=== PATIENT | female | born 1965 | race American Indian/Alaskan Native ===

== ENCOUNTER 2017-03-13 01:59 | Inpatient (IN) | payer BC ==
[2017-03-13 02:29] VITALS: BMI 37.4
--- NOTE | 2017-03-13 02:48 | ED PDOC ---
Arrival/HPI - General Chief Complaint: Female Genitourinary Time Seen by Provider: 03/13/17 02:20 Historian: Patient - History of Present Illness Narrative History of Present Illness (Text): 03/13/17 02:45 Cherelle Willis is a 52 year old female, whose past medical history includes hysterectomy, who presents to the Emergency department complaining of flank pain. Patient reports she has been experiencing intermittent right flank pain radiating to her right abdomen for 1 day. Patient notes associated nausea and dark urine. Patient denies any fever, chills, chest pain, shortness of breath, vomiting, diarrhea, neck pain, headache, dizziness, or any other complaints. Symptom Onset: Gradual Symptom Course: Unchanged, Intermittent Activities at Onset: Light Context: Home Past Medical History - Provider Review Nursing Documentation Reviewed: Yes - Tetanus Immunization Tetanus Immunization: Unknown - Hematological/Oncological Hx Anemia: Yes - Musculoskeletal/Rheumatological Hx Falls: No - Genitourinary/Gynecological Other/Comment: tubal ligation-1996 - Psychiatric Hx Depression: No Hx Emotional Abuse: No Hx Physical Abuse: No Hx Substance Use: No - Surgical History Hx Hysterectomy: Yes Hx Tubal Ligation: Yes - Suicidal Assessment Feels Threatened In Home Enviroment: No Family/Social History - Physician Review Nursing Documentation Reviewed: Yes Family/Social History: Unknown Family HX Smoking Status: Never Smoked Hx Alcohol Use: No Hx Substance Use: No Hx Substance Use Treatment: No Allergies/Home Meds Allergies/Adverse Reactions: Allergies No Known Allergies Allergy (Verified 03/13/17 02:32) Review of Systems - Physician Review All systems were reviewed & negative as marked: Yes - Review of Systems Constitutional: Normal. absent: Fevers Eyes: Normal ENT: Normal Respiratory: Normal. absent: SOB, Cough Cardiovascular: Normal. absent: Chest Pain Gastrointestinal: Abdominal Pain, Nausea. absent: Diarrhea, Vomiting Genitourinary Female: Other (+dark urine). absent: Dysuria, Frequency, Urine Output Changes Musculoskeletal: Back Pain (+right flank pain). absent: Neck Pain Skin: Normal. absent: Rash Neurological: Normal. absent: Headache, Dizziness Endocrine: Normal Hemo/Lymphatic: Normal Psychiatric: Normal Physical Exam Vital Signs Reviewed: Yes Vital Signs Temp Pulse Resp BP Pulse Ox 03/13/17 05:44 98.8 F 83 18 116/70 100 03/13/17 02:29 98.9 F 99 H 20 115/79 97 Temperature: Afebrile Blood Pressure: Normal Pulse: Regular Respiratory Rate: Normal Appearance: Positive for: Well-Appearing, Non-Toxic, Comfortable Pain Distress: None Mental Status: Positive for: Alert and Oriented X 3 - Systems Exam Head: Present: Atraumatic, Normocephalic Pupils: Present: PERRL Extroacular Muscles: Present: EOMI Conjunctiva: Present: Normal Mouth: Present: Moist Mucous Membranes Neck: Present: Normal Range of Motion Respiratory/Chest: Present: Clear to Auscultation, Good Air Exchange. No: Respiratory Distress, Accessory Muscle Use Cardiovascular: Present: Regular Rate and Rhythm, Normal S1, S2. No: Murmurs Abdomen: Present: Normal Bowel Sounds. No: Tenderness, Distention, Peritoneal Signs Back: Present: Normal Inspection. No: CVA Tenderness, Midline Tenderness, Paraspinal Tenderness Upper Extremity: Present: Normal Inspection. No: Cyanosis, Edema Lower Extremity: Present: Normal Inspection. No: Edema Neurological: Present: GCS=15, CN II-XII Intact, Speech Normal Skin: Present: Warm, Dry, Normal Color. No: Rashes Psychiatric: Present: Alert, Oriented x 3, Normal Insight, Normal Concentration Medical Decision Making ED Course and Treatment: 03/13/17 02:45 Impression: 52 year old female complaining of right flank pain, dark urine, and nausea for 1 day. Plan: --CT Abdomen and Pelvis w/o contrast -- Labs -- Urinalysis -- IV fluids -- Zofran -- Toradol -- Reassess and disposition Progress Notes: 03/13/17 04:28 Reviewed radiology, CT Abdomen and Pelvis shows: - Acute appendicitis, complicated by a suspected 5 cm solid/phlegmonous collection abutting the tip of the appendix. No evidence of free air. - See above for remaining findings. 03/13/17 04:31 Case discussed with surgical supplies sterilizer data reduction technician, who is aware and agrees with plan. Surgeon data reduction technician paged. 03/13/17 05:[address] Kim, who is aware and agrees with plan. Accepts pt in to her service. Pt will be [facility] for appendicitis. Requests Dr. Ely on consult Pt in no acute distress. Discussed results and hospital admission plan with ot, who is aware and verbalizes understanding. - Lab Interpretations Microbiology Results: Microbiology Results 03/13/17 04:58 Blood-Venous Blood Culture - Preliminary NO GROWTH AFTER 24 HOURS Lab Results: 03/13/17 03:10 03/13/17 03:10 Lab Results 03/13/17 04:58: PT 11.9 H, INR 1.10 H, APTT 29.6 03/13/17 03:10: Sodium 140, Potassium 4.1, Chloride 104, Carbon Dioxide 25, Anion Gap 15, BUN 12, Creatinine 0.8, Est GFR ( Amer) > 60, Est GFR (Non- Af Amer) > 60, Random Glucose 143 H, Calcium 9.8, Total Bilirubin 1.0, AST 51 H , ALT 57 H, Alkaline Phosphatase 108, Total Protein 8.0, Albumin 4.4, Globulin 3.7, Albumin/Globulin Ratio 1.2 03/13/17 03:10: WBC 9.8, RBC 4.46, Hgb 12.1, Hct 36.0, MCV 80.7, MCH 27.1, MCHC 33.6, RDW 13.5, Plt Count 270, MPV 9.3, Gran % 76.9 H, Lymph % (Auto) 13.1 L, Edgar % (Auto) 9.7 H, Eos % (Auto) 0.1 L, Baso % (Auto) 0.2, Gran # 7.49 H, Lymph # 1.3, Edgar # 1.0 H, Eos # 0.0, Baso # 0.02 03/13/17 02:45: Urine Color Yellow, Urine Appearance Cloudy, Urine pH 5.5, Ur Specific Engelhard >= 1.030, Urine Protein 30 H, Urine Glucose (UA) Negative, Urine Ketones Negative, Urine Blood Trace-intact H, Urine Nitrate Negative, Urine Bilirubin Negative, Urine Urobilinogen 1.0 H, Ur Leukocyte Esterase Negative, Urine RBC 0 - 2, Urine WBC 1 - 3, Ur Epithelial Cells 3 - 4, Urine Bacteria Mod, Urine HCG, Qual Negative I have reviewed the lab results: Yes - RAD Interpretation Narrative RAD Interpretations (Text): CT Abdomen and Pelvis shows: LOWER THORAX: No infiltrate seen in the lung bases. ABDOMEN: LIVER: No acute abnormality of the liver identified. GALLBLADDER AND BILE DUCTS: No CT evidence of acute cholecystitis. No evidence of significant biliary ductal dilatation. PANCREAS: No CT evidence of acute pancreatitis. SPLEEN: No acute abnormality of the spleen identified. ADRENALS: No acute abnormality of the adrenal glands identified. KIDNEYS AND URETERS: No acute abnormality of the kidneys seen. No renal stones, hydronephrosis, or hydroureter seen. STOMACH AND BOWEL: No acute abnormality of the stomach, small bowel or colon identified. No evidence of bowel obstruction. APPENDIX: Appendix is seen, extending in medially from the cecum, image 53/ series 601. It is dilated, measuring up to 1.3 cm in diameter (normal less than 6 mm). Its lumen is fluid-filled. There are mild inflammatory changes in the periappendiceal fat. Findings are highly suspicious for acute appendicitis. Best seen on image 55 of series 601, there is a 5 x 3.5 x 3.5 cm oval shaped, solid appearing area in the right pelvis, which directly abuts the tip of the appendix. There is marked stranding of the adjacent right pelvic fat, compatible with adjacent inflammation. This is suspicious for a focal phlegmonous collection abutting the tip of the appendix. It does not contain gas. No nearby extraluminal air seen to suggest perforated appendicitis. PELVIS: BLADDER: No acute abnormality of the bladder identified. REPRODUCTIVE: Right ovary is seen, image 63/series 601. It directly abuts the suspected phlegmonous collection in the right pelvis, but there is no focal cystic right ovarian lesion seen. Uterus is surgically absent. Left ovary is unremarkable in appearance. ABDOMEN and PELVIS: INTRAPERITONEAL SPACE: Small amount of a free fluid in the cul-de-sac. No evidence of free air. BONES/JOINTS: No acute fractures or other acute bony abnormality noted. SOFT TISSUES: Small umbilical hernia, containing only fat. VASCULATURE: No evidence of abdominal aortic aneurysm. No evidence of periaortic hemorrhage. LYMPH NODES: No evidence of diffuse lymphadenopathy. IMPRESSION: - Acute appendicitis, complicated by a suspected 5 cm solid/phlegmonous collection abutting the tip of the appendix. No evidence of free air. - See above for remaining findings. Radiology Orders: 03/13/17 02:49 ABD & PELVIS W/O PO OR IV CONT [CT] Stat 03/13/17 04:45 CHEST PORTABLE [RAD] Stat [employer]: Radiologist - Medication Orders Current Medication Orders: Docusate Sodium (Colace) 100 mg PO DAILY [facility] Last Admin: 03/14/17 09:24 Dose: 100 mg Last Bowel Movement Document 03/14/17 09:24 TW (Rec: 03/14/17 09:24 TW [id number]) Last Bowel Movement Last Bowel Movement 03/12/17 Enoxaparin Sodium (Lovenox) 40 mg SC DAILY [facility] PRN Reason: Protocol Last Admin: 03/14/17 09:23 Dose: Hydromorphone HCl (Dilaudid) 1 mg IVP Q4H PRN PRN Reason: Pain, moderate (4-7) Last Admin: 03/14/17 18:45 Dose: 1 mg MAR Pain Assessment Document 03/14/17 18:45 TW (Rec: 03/14/17 18:46 TW [id number]) Pain Reassessment Is this a pain reassessment? No Presence of Pain Presence of Pain Yes Pain Scale Used Pain Scale Used Numeric Description Intensity of Pain at present 10 IVP Administration Document 03/14/17 18:45 TW (Rec: 03/14/17 18:46 TW [id number]) Charges for Administration # of IVP Administrations 1 Metronidazole (Flagyl) 500 mg in 100 mls @ 100 mls/hr IVPB Q8 [facility] PRN Reason: Protocol Last Admin: 03/14/17 21:52 Dose: 100 mls/hr eMAR Start Stop Document 03/14/17 21:52 KTB (Rec: 03/14/17 21:52 KTB [id number]) Intravenous Solution Start Date 03/14/17 Start Time 21:52 End Date 03/14/17 End time 22:52 Total Infusion Time 60 Ceftriaxone Sodium (Rocephin 1 Gram Ivpb) 1 gm in 100 mls @ 100 mls/hr IVPB DAILY [facility] PRN Reason: Protocol Last Admin: 03/14/17 09:27 Dose: 100 mls/hr eMAR Start Stop Document 03/14/17 09:27 TW (Rec: 03/14/17 09:27 TW [id number]) Intravenous Solution Start Date 03/14/17 Start Time 09:27 End Date 03/14/17 End time 10:27 Total Infusion Time 60 Sodium Chloride (Sodium Chloride 0.9%) 1,000 mls @ 110 mls/hr IV .Q9H6M [facility] Last Admin: 03/14/17 20:20 Dose: 110 mls/hr eMAR Start Stop Document 03/14/17 20:20 KTB (Rec: 03/14/17 20:20 KTB [id number]) Intravenous Solution Start Date 03/14/17 Start Time 20:20 Metoclopramide HCl (Reglan) 10 mg IV ONCE PRN PRN Reason: Nausea/Vomiting Morphine Sulfate (Morphine) 4 mg IVP Q4H PRN PRN Reason: Pain, moderate (4-7) Ondansetron HCl (Zofran Inj) 4 mg IVP Q4H PRN PRN Reason: Nausea/Vomiting Last Admin: 03/14/17 17:52 Dose: 4 mg IVP Administration Document 03/14/17 17:52 TW (Rec: 03/14/17 17:52 TW [id number]) Charges for Administration # of IVP Administrations 1 Oxycodone/Acetaminophen (Percocet 5/325 Mg Tab) 2 tab PO Q4H PRN PRN Reason: Pain, moderate (4-7) Stop: 03/17/17 09:12 Discontinued Medications Hydromorphone HCl (Dilaudid) 0.5 mg IVP Q15M PRN PRN Reason: Pain, moderate (4-7) Stop: 03/13/17 13:11 Sodium Chloride (Sodium Chloride 0.9%) 1,000 mls @ 100 mls/hr IV .Q10H STA Stop: 03/13/17 12:48 Last Admin: 03/13/17 03:14 Dose: 100 mls/hr eMAR Start Stop Document 03/13/17 03:14 LEILA (Rec: 03/13/17 03:14 [facility] [id number]) Intravenous Solution Start Date 03/13/17 Start Time 03:14 Metronidazole (Flagyl) 500 mg in 100 mls @ 100 mls/hr IVPB STAT STA PRN Reason: Protocol Stop: 03/13/17 05:45 Last Admin: 03/13/17 06:01 Dose: 100 mls/hr eMAR Start Stop Document 03/13/17 06:01 LEILA (Rec: 03/13/17 06:01 LEILA [facility] [id number]) Intravenous Solution Start Date 03/13/17 Start Time 06:01 Ceftriaxone Sodium (Rocephin 1 Gram Ivpb) 1 gm in 100 mls @ 200 mls/hr IVPB STAT STA PRN Reason: Protocol Stop: 03/13/17 05:14 Last Admin: 03/13/17 06:00 Dose: 200 mls/hr eMAR Start Stop Document 03/13/17 06:00 LEILA (Rec: 03/13/17 06:01 [facility]ILA [facility] [id number]) Intravenous Solution Start Date 03/13/17 Start Time 05:05 End Date 03/13/17 End time 06:01 Total Infusion Time 56 Lactated Ringer's (Lactated Ringer's) 1,000 mls @ 75 mls/hr IV .[id number] [facility] Stop: 03/13/17 13:16 Last Admin: 03/14/17 04:13 Dose: Not Given Non-Admin Reason: Patient in OR/Vascular Sodium Chloride (Sodium Chloride 0.9%) 1,000 mls @ 150 mls/hr IV .Q6H40M [facility] Last Admin: 03/14/17 08:19 Dose: Ketorolac Tromethamine (Toradol) 30 mg IVP STAT STA Stop: 03/13/17 02:50 Last Admin: 03/13/17 03:14 Dose: 30 mg [facility] Pain Assessment Document 03/13/17 03:14 LEILA (Rec: 03/13/17 03:15 [facility]ILA [facility] [id number]) Pain Reassessment Is this a pain reassessment? Yes Presence of Pain Presence of Pain Yes Location Left, Right or Bilateral Right Pain Location Body Site Back IVP Administration Document 03/13/17 03:14 LEILA (Rec: 03/13/17 03:15 [facility]IL[facility] [id number]) Charges for Administration # of IVP Administrations 1 Re-Assess: MAR Pain Assessment Document 03/13/17 04:14 RR (Rec: 03/14/17 04:19 RR [id number]) Pain Reassessment Is this a pain reassessment? Yes Sleep Is patient sleeping during reassessment? Yes Pain Scale Used Pain Scale Used FLACC Ketorolac Tromethamine (Toradol) 30 mg IVP ONCE ONE Stop: 03/13/17 03:47 Last Admin: 03/13/17 04:22 Dose: 30 mg MAR Pain Assessment Document 03/13/17 04:22 LEILA (Rec: 03/13/17 04:23 LEILA [facility] [id number]) Pain Reassessment Is this a pain reassessment? Yes Presence of Pain Presence of Pain Yes Location Left, Right or Bilateral Right Upper or Lower Lower Pain Location Body Site Back IVP Administration Document 03/13/17 04:22 LEILA (Rec: 03/13/17 04:23 LEILA [facility] [id number]) Charges for Administration # of IVP Administrations 1 Re-Assess: [facility] Pain Assessment Document 03/13/17 05:22 RR (Rec: 03/14/17 04:19 RR [id number]) Pain Reassessment Is this a pain reassessment? Yes Sleep Is patient sleeping during reassessment? Yes Pain Scale Used Pain Scale Used FLACC Morphine Sulfate (Morphine) 2 mg IVP STAT STA Stop: 03/13/17 03:47 Last Admin: 03/13/17 04:22 Dose: 2 mg [facility] Pain Assessment Document 03/13/17 04:22 LEILA (Rec: 03/13/17 04:22 LEILA [facility] [id number]) Pain Reassessment Is this a pain reassessment? Yes Presence of Pain Presence of Pain Yes Location Left, Right or Bilateral Right Upper or Lower Lower Pain Location Body Site Back IVP Administration Document 03/13/17 04:22 LEILA (Rec: 03/13/17 04:22 LEILA [facility] [id number]) Charges for Administration # of IVP Administrations 1 Re-Assess: [facility] Pain Assessment Document 03/13/17 05:22 RR (Rec: 03/14/17 04:18 RR [id number]) Pain Reassessment Is this a pain reassessment? Yes Sleep Is patient sleeping during reassessment? Yes Pain Scale Used Pain Scale Used FLACC Ondansetron HCl (Zofran Inj) 4 mg IVP STAT STA Stop: 03/13/17 02:50 Last Admin: 03/13/17 03:15 Dose: 4 mg IVP Administration Document 03/13/17 03:15 LEILA (Rec: 03/13/17 03:15 LEILA [facility] [id number]) Charges for Administration # of IVP Administrations 1 Pneumococcal Polyvalent Vaccine (Pneumovax 23 Vaccine) 0.5 ml IM .ONCE ONE Stop: 03/13/17 14:56 - Scribe Statement The provider has reviewed the documentation as recorded by the Marianela Hanna Provider Scribe Attestation: All medical record entries made by the Scribe were at my direction and personally dictated by me. I have reviewed the chart and agree that the record accurately reflects my personal performance of the history, physical exam, medical decision making, and the department course for this patient. I have also personally directed, reviewed, and agree with the discharge instructions and disposition. Disposition/Present on Arrival - Present on Arrival Any Indicators Present on Arrival: No History of DVT/PE: No History of Uncontrolled Diabetes: No Urinary Catheter: No History of Decub. Ulcer: No History Surgical Site Infection Following: None - Disposition Have Diagnosis and Disposition been Completed?: Yes Diagnosis: Appendicitis Disposition: HOSPITALIZED Disposition Time: 05:30 Condition: GOOD
[2017-03-13 03:07] LABS: PH,URINE 5.5 (4.7-8.0); URINE BILIRUBIN NEGATIVE (NEGATIVE); URINE BLOOD TRACE-INTACT (NEGATIVE); URINE GLUCOSE (UA) NEGATIVE (NEGATIVE); URINE KETONE NEGATIVE (NEGATIVE); URINE LEUKOCYTE ESTERASE NEGATIVE Leu/uL (NEGATIVE); URINE PROTEIN 30 mg/dL (<30 mg/dL)
[2017-03-13] MEDS: Sodium Chloride 0.9% 1,000 ML IV STA (03:14)
[2017-03-13 03:16] LABS: URINE APPEARANCE CLOUDY (CLEAR); URINE COLOR YELLOW (YELLOW)
[2017-03-13 03:27] LABS: URINE BACTERIA MOD (NEG); URINE RBC 0 - 2 /hpf (0-2)
[2017-03-13 03:28] LABS: BASO # 0.02 K/mm3 (0.0-2.0); BASO % 0.2 % (0.0-3.0); EOS % 0.1 % (1.5-5.0); GRAN # 7.49 (1.4-6.5); GRAN % 76.9 % (50.0-68.0); LYMPH # 1.3 (1.2-3.4); LYMPH % 13.1 % (22.0-35.0); MEAN CELL VOLUME 80.7 fl (80.0-105.0); MEAN CORPUSCULAR HEMOGLOBIN 27.1 pg (25.0-35.0); MEAN CORPUSCULAR HGB CONC 33.6 g/dl (31.0-37.0); MEAN PLATELET VOLUME 9.3 fl (7.0-11.0); MONO % 9.7 % (1.0-6.0); RED CELL DISTRIBUTION WIDTH 13.5 % (11.5-14.5); WHITE BLOOD COUNT 9.8 10^3/ul (4.5-11.0)
[2017-03-13 03:39] LABS: ALB/GLOB RATIO 1.2 (1.1-1.8); ALKALINE PHOSPHATASE 108 U/L (38-126); ALT/SGPT 57 U/L (7-56); AST/SGOT 51 U/L (14-36); BLOOD UREA NITROGEN 12 mg/dL (7-21); CALCIUM 9.8 mg/dL (8.4-10.5); CARBON DIOXIDE 25 mmol/L (21-33); CHLORIDE 104 mmol/L (95-110); GFR AFRICAN-AMERICAN > 60; GLUCOSE,RANDOM 143 mg/dL (70-110); POTASSIUM 4.1 mmol/L (3.6-5.0); SODIUM 140 mmol/L (132-148)
[2017-03-13] MEDS: Morphine 2 mg/ml ISec IVP STA (04:22)
--- NOTE | 2017-03-13 04:22 | CT ---
EXAM: CT Abdomen and Pelvis Without Intravenous Contrast CLINICAL HISTORY: 52 years old, female; Pain; Abdominal pain; Flank; Right; Additional info: Rt flank pain EXAM DATE/TIME: 03/13/2017 2:49 AM TECHNIQUE: Axial computed tomography images of the abdomen and pelvis without intravenous contrast. All CT scans at this facility use one or more dose reduction techniques, viz.: automated exposure control; ma/kV adjustment per patient size (including targeted exams where dose is matched to indication; i.e. head); or iterative reconstruction technique. Coronal and sagittal reformatted images were created and reviewed. COMPARISON: Prior pelvic ultrasound of 01/30/2012 FINDINGS: LOWER THORAX: No infiltrate seen in the lung bases. ABDOMEN: LIVER: No acute abnormality of the liver identified. GALLBLADDER AND BILE DUCTS: No CT evidence of acute cholecystitis. No evidence of significant biliary ductal dilatation. PANCREAS: No CT evidence of acute pancreatitis. SPLEEN: No acute abnormality of the spleen identified. ADRENALS: No acute abnormality of the adrenal glands identified. KIDNEYS AND URETERS: No acute abnormality of the kidneys seen. No renal stones, hydronephrosis, or hydroureter seen. STOMACH AND BOWEL: No acute abnormality of the stomach, small bowel or colon identified. No evidence of bowel obstruction. APPENDIX: Appendix is seen, extending in medially from the cecum, image 53/series 601. It is dilated, measuring up to 1.3 cm in diameter (normal less than 6 mm). Its lumen is fluid-filled. There are mild inflammatory changes in the periappendiceal fat. Findings are highly suspicious for acute appendicitis. Best seen on image 55 of series 601, there is a 5 x 3.5 x 3.5 cm oval shaped, solid appearing area in the right pelvis, which directly abuts the tip of the appendix. There is marked stranding of the adjacent right pelvic fat, compatible with adjacent inflammation. This is suspicious for a focal phlegmonous collection abutting the tip of the appendix. It does not contain gas. No nearby extraluminal air seen to suggest perforated appendicitis. PELVIS: BLADDER: No acute abnormality of the bladder identified. REPRODUCTIVE: Right ovary is seen, image 63/series 601. It directly abuts the suspected phlegmonous collection in the right pelvis, but there is no focal cystic right ovarian lesion seen. Uterus is surgically absent. Left ovary is unremarkable in appearance. ABDOMEN and PELVIS: INTRAPERITONEAL SPACE: Small amount of a free fluid in the cul-de-sac. No evidence of free air. BONES/JOINTS: No acute fractures or other acute bony abnormality noted. SOFT TISSUES: Small umbilical hernia, containing only fat. VASCULATURE: No evidence of abdominal aortic aneurysm. No evidence of periaortic hemorrhage. LYMPH NODES: No evidence of diffuse lymphadenopathy. IMPRESSION: - Acute appendicitis, complicated by a suspected 5 cm solid/phlegmonous collection abutting the tip of the appendix. No evidence of free air. - See above for remaining findings.
[2017-03-13] MEDS: cefTRIAXone 1 gm 1 GM/100 ML BAG IVPB STA ×2 (05:06→06:00)
[2017-03-13 05:20] LABS: INR 1.1 (0.93-1.08); PARTIAL THROMBOPLASTIN TIME 29.6 Seconds (23.7-30.8)
--- NOTE | 2017-03-13 05:53 | CP.PCM.CON ---
History of Present Illness - History of Present Illness History of Present Illness: General Surgery - Dr Ely 52yo F with no PMH, presenting w/ RLQ abdominal pain x24hrs. Pt states the pain began yesterday morning when she woke up. She describes it as a sharp pain located in the RLQ abdomen, non-radiating, 8/10, becoming progressively worse throughout the day/night yesterday. She's never had this pain before. PT also developed associated nausea. She denies any vomiting, Fevers/Chills, Diarrhea/Constipation, SOB, chest pain, Dysuria, Hematuria. PMH: denies PSH: Hysterectomy No ETOH No Tobacco No Drug use No Medications NKDA Pt was S&E in the ED. Vitals stable and WNL. Labs also WNL. A CT abdomen/ pelvis was done which showed a dilated inflamed appendix approx 1.3cm diameter with phlegmonous changes about the tip. Surgery was consulted for acute appendicitis. Review of Systems - Review of Systems All systems: reviewed and no additional remarkable complaints except (as per HPI ) Past Patient History - Tetanus Immunizations Tetanus Immunization: Unknown - Past Social History Smoking Status: Never Smoked - HEMATOLOGICAL/ONCOLOGICAL Hx Anemia: Yes - MUSCULOSKELETAL/RHEUMATOLOGICAL Hx Falls: No - GENITOURINARY/GYNECOLOGICAL Other/Comment: tubal ligation-1995 - PSYCHIATRIC Hx Depression: No Hx Emotional Abuse: No Hx Physical Abuse: No Hx Substance Use: No - SURGICAL HISTORY Hx Hysterectomy: Yes Hx Tubal Ligation: Yes Meds Allergies/Adverse Reactions: Allergies Allergy/AdvReac Type Severity Reaction Status Date / Time No Known Allergies Allergy Verified 03/13/17 02:32 - Medications Medications: Current Medications Sodium Chloride (Sodium Chloride 0.9%) 1,000 mls @ 100 mls/hr IV .Q10H STA Stop: 03/13/17 12:48 Last Admin: 03/13/17 03:14 Dose: 100 mls/hr Physical Exam - Constitutional Appears: No Acute Distress - Head Exam Head Exam: ATRAUMATIC, NORMAL INSPECTION, NORMOCEPHALIC - Eye Exam Eye Exam: Normal appearance - ENT Exam ENT Exam: Mucous Membranes Moist - Respiratory Exam Respiratory Exam: NORMAL BREATHING PATTERN. absent: Respiratory Distress - Cardiovascular Exam Cardiovascular Exam: REGULAR RHYTHM - GI/Abdominal Exam GI & Abdominal Exam: Guarding (voluntary), Rebound, Soft, Tenderness (RLQ TTP at McBurney's Pt, + Rovsing's sign). absent: Distended, Firm, Rigid - Neurological Exam Neurological exam: Alert, Oriented x3 - Psychiatric Exam Psychiatric exam: Normal Affect, Normal Mood - Skin Skin Exam: Dry, Intact Results - Vital Signs Recent Vital Signs: Last Vital Signs Temp 98.8 F 03/13/17 05:44 Pulse 83 03/13/17 05:44 Resp 18 03/13/17 05:44 BP 116/70 03/13/17 05:44 Pulse Ox 100 03/13/17 05:44 - Labs Result Diagrams: 03/13/17 03:10 03/13/17 03:10 Labs: Laboratory Results - last 24 hr 03/13/17 03/13/17 03/13/17 02:45 03:10 03:10 WBC 9.8 RBC 4.46 Hgb 12.1 Hct 36.0 MCV 80.7 MCH 27.1 MCHC 33.6 RDW 13.5 Plt Count 270 MPV 9.3 Gran % 76.9 H Lymph % (Auto) 13.1 L Yancey % (Auto) 9.7 H Eos % (Auto) 0.1 L Baso % (Auto) 0.2 Gran # 7.49 H Lymph # 1.3 Yancey # 1.0 H Eos # 0.0 Baso # 0.02 PT INR APTT Sodium 140 Potassium 4.1 Chloride 104 Carbon Dioxide 25 Anion Gap 15 BUN 12 Creatinine 0.8 Est GFR ( Amer) > 60 Est GFR (Non-Af Amer) > 60 Random Glucose 143 H Calcium 9.8 Total Bilirubin 1.0 AST 51 H ALT 57 H Alkaline Phosphatase 108 Total Protein 8.0 Albumin 4.4 Globulin 3.7 Albumin/Globulin Ratio 1.2 Urine Color Yellow Urine Appearance Cloudy Urine pH 5.5 Ur Specific Annabella >= 1.030 Urine Protein 30 H Urine Glucose (UA) Negative Urine Ketones Negative Urine Blood Trace-intact H Urine Nitrate Negative Urine Bilirubin Negative Urine Urobilinogen 1.0 H Ur Leukocyte Esterase Negative Urine RBC 0 - 2 Urine WBC 1 - 3 Ur Epithelial Cells 3 - 4 Urine Bacteria Mod Urine HCG, Qual Negative 03/13/17 04:58 WBC RBC Hgb Hct MCV MCH MCHC RDW Plt Count MPV Gran % Lymph % (Auto) Yancey % (Auto) Eos % (Auto) Baso % (Auto) Gran # Lymph # Yancey # Eos # Baso # PT 11.9 H INR 1.10 H APTT 29.6 Sodium Potassium Chloride Carbon Dioxide Anion Gap BUN Creatinine Est GFR ( Amer) Est GFR (Non-Af Amer) Random Glucose Calcium Total Bilirubin AST ALT Alkaline Phosphatase Total Protein Albumin Globulin Albumin/Globulin Ratio Urine Color Urine Appearance Urine pH Ur Specific Annabella Urine Protein Urine Glucose (UA) Urine Ketones Urine Blood Urine Nitrate Urine Bilirubin Urine Urobilinogen Ur Leukocyte Esterase Urine RBC Urine WBC Ur Epithelial Cells Urine Bacteria Urine HCG, Qual Assessment & Plan - Assessment and Plan (Free Text) Assessment: 52 yo F w/ acute appendicitis -NPO, IVF, IV Abx -Pain control/Anti-emetics prn -OR for Lap Appendectomy today DW Dr. Solis Schaeffer PGY3
[2017-03-13] MEDS: metroNIDAZOLE IV 500 mg/100 ml 500 MG/100 ML BAG IVPB STA (06:01)
[2017-03-13] MEDS ORDERED: Morphine 4 mg/ml ISec IVP PRN (07:01)
[2017-03-13] MEDS ORDERED: Bupivacaine 0.5% Inj(30mL) ONE (07:49)
[2017-03-13] MEDS ORDERED: Rocuronium 10 mg/ml (5 ml) ONE (08:28)
[2017-03-13] MEDS ORDERED: Midazolam 2 MG/2 ML VIAL ONE (08:28)
[2017-03-13] MEDS ORDERED: Succinylcholine 200 mg/10 ml Inj IV ONE (08:28)
[2017-03-13] MEDS ORDERED: Propofol 10 mg/ml Inj (20 ML) ONE (08:28)
--- NOTE | 2017-03-13 08:40 | RAD ---
HISTORY: ap COMPARISON: No prior. FINDINGS: LUNGS: No active pulmonary disease. PLEURA: 07/12/2016 mildly elevated right hemidiaphragm, unchanged and nonspecific. No evidence of pleural effusion or pneumothorax. CARDIOVASCULAR: Normal. OSSEOUS STRUCTURES: No significant abnormalities. VISUALIZED UPPER ABDOMEN: Normal. OTHER FINDINGS: None. IMPRESSION: No active disease.
[2017-03-13] MEDS ORDERED: Neostigmine Methylsulfate 3mg/3ml Syringe IV ONE (09:11)
[2017-03-13] MEDS ORDERED: Glycopyrrolate 0.2 mg/ml (2ml vial) ONE (09:11)
[2017-03-13] MEDS ORDERED: HYDROmorphone 0.5 mg/0.5 ml ISec IVP PRN (11:11)
[2017-03-13] MEDS ORDERED: Lactated Ringer's 1,000 ML IV SCH (11:15)
--- NOTE | 2017-03-13 11:17 | PCM.SURG1 ---
Surgeon's Initial Post Op Note - Surgeon's Notes Surgeon: Dr. Ely Bean Weigher: Coni Mcdaniel PGY2, Mela PGY1 Type of Anesthesia: General Endo Pre-Operative Diagnosis: Appendicitis Operative Findings: Ruptured appendicitis, appendiceal mass 2x3cm. Post-Operative Diagnosis: Acute appendicitis Operation Performed: laparoscopic converted to open, appendectomy. Specimen/Specimens Removed: appendix with mass. Estimated Blood Loss: EBL {In ML}: 50 Blood Products Given: N/A Drains Used: Ed Post-Op Condition: Good Date of Surgery/Procedure: 03/13/17 Time of Surgery/Procedure: 17
[2017-03-13] MEDS ORDERED: HYDROmorphone 0.5 mg/0.5 ml ISec ONE ×2 (12:23→12:39)
[2017-03-13] MEDS ORDERED: HYDROmorphone 0.5 mg/0.5 ml ISec IVP ONE ×2 (12:26→12:41)
[2017-03-13] MEDS ORDERED: Influenza Vaccine 60 mcg/0.5 mL SYR (4YR UP) IM ONE (14:55)
[2017-03-13] MEDS ORDERED: Pneumococcal 23-Valent Vaccine IM ONE (14:55)
[2017-03-13] MEDS: metroNIDAZOLE IV 500 mg/100 ml 500 MG/100 ML BAG IVPB SCH ×2 (15:44→21:54)
[2017-03-13] MEDS: HYDROmorphone 0.5 mg/0.5 ml ISec IVP PRN ×2 (15:54→21:53)
--- NOTE | 2017-03-13 19:15 | CON ---
DATE: 03/13/2017 REASON FOR CONSULTATION: Preoperative evaluation for possible appendicitis, for appendectomy. HISTORY OF PRESENT ILLNESS: This is a 52-year-old female with past medical history significant for hysterectomy who came to the Emergency Room with right lower quadrant pain, found to be in acute exacerbation. The patient is in the OR, seen in the recovery area. Cardiology consult is called for preoperative evaluation. The patient has already had appendectomy done. The patient denies any chest pain, shortness of breath, or any palpitation. PAST MEDICAL HISTORY: Denies any significant history. PAST SURGICAL HISTORY: Significant for hysterectomy. CURRENT MEDICATIONS: None. SOCIAL HISTORY: No history of substance abuse, no history of alcohol abuse. PREVIOUS CARDIAC WORKUP: As follows; the patient had an echocardiography on 12/15/2013, that shows trace mitral regurgitation, ejection fraction 70%. The patient had a stress test on 12/15/2013, no evidence of ischemia. REVIEW OF SYSTEMS: As per HPI. PHYSICAL EXAMINATION VITAL SIGNS: Temperature afebrile, heart rate 89, blood pressure 109/71. HEENT: PERRLA intact. NECK: Supple. No carotid bruit or thyromegaly. CHEST: Clear to auscultation. HEART: S1 and S2 regular. ABDOMEN: Soft. Surgically dressed. EXTREMITIES: Clubbing and cyanosis negative. LABORATORY DATA: Blood workup as follows; WBC 9.8, hemoglobin 12.9, hematocrit 36.0, platelet count 270. Chemistry shows sodium 140, potassium 4.0, chloride 104, carbon dioxide 25, anion gap of 12, BUN 15, creatinine 0.8. IMPRESSION AND PLAN: Acute appendicitis, status post appendectomy. Postoperatively, the patient is otherwise hemodynamically stable. Repeat the blood workup in the morning. We will get a magnesium, phosphate and thyroid in the morning. We will follow up with you. Thank you Dr. Jaquez for providing us the opportunity in taking care of Cherelle Willis. Norah Lam MD
--- NOTE | 2017-03-13 22:14 | CARD ---
APPROVED REPORT EKG Measurement Heart [id number] <Conclusion> Normal sinus rhythm Nonspecific T wave abnormality Abnormal ECG
--- NOTE | 2017-03-14 01:46 | HP ---
CHIEF COMPLAINT: Flank pain. HISTORY OF PRESENT ILLNESS: Ms. Cherelle Willis is a 52-year-old female with past medical history of hysterectomy, came to the emergency department with flank pain. The patient reports that she has been experiencing intermittent right flank pain, radiating into her right abdomen for 1 week. The patient noticed associated nausea and dark urine. The patient denies any fever, chills, chest pain, shortness of breath, nausea, vomiting, diarrhea, neck pain, headache, dizziness or any other complaints. It started to gradually increase, unchanged. The patient went today to OR for surgery by Dr. Ely, appendectomy, and was seen after that, looking comfortable. ALEXANDRA drain is there. The patient's mother, daughter and granddaughter were sitting on the bedside also. PAST MEDICAL HISTORY: Hysterectomy and tubal ligation. HABITS: Never smoked. No drugs. No ethanol. ALLERGIES: THE PATIENT IS NOT ALLERGIC WITH ANY MEDICATIONS. HOME MEDICATIONS: Denied. REVIEW OF SYSTEMS: The patient was seen and examined on the bedside. After surgery, abdomen is tender. Has dressing. ALEXANDRA tube is draining. No nausea or vomiting. Does not have gas or bowel movement yet. Using incentive spirometer. No fevers. No chills. PHYSICAL EXAMINATION: VITAL SIGNS: Temperature 98, pulse 80, blood pressure 122/76 and respiratory rate 20. HEENT: Head; normocephalic and atraumatic. Eyes: PERRLA. Extraocular muscles intact. Conjunctivae clear. Nose patent. Mucous membranes moist. NECK: Supple. No carotid bruits. No JVD or thyromegaly. CHEST: Bilaterally symmetrical. HEART: S1 and S2 positive. LUNGS: Clear to auscultation. ABDOMEN: Soft. Bowel sounds positive. No organomegaly. EXTREMITIES: No edema. No cyanosis. NEUROLOGICAL: The patient is awake and alert. Moving all 4 extremities. No focal deficits. MEDICATIONS: The patient is getting Dilaudid, Flagyl, Lovenox, morphine, Reglan, Rocephin and Zofran. LABORATORY DATA: White blood cells 9.8, hemoglobin 12.1, hematocrit 36.0, platelet count 270. Sodium 140, potassium 4.1, BUN 12, creatinine 0.8, glucose 143, AST 51 and ALT 57. ASSESSMENT AND PLAN: Ms. Cherelle Willis is a 52-year-old lady with hyperglycemia, abnormal liver function test, proteinuria, hematuria, came with abdominal pain, did CAT scan of abdomen and pelvis according to Dr. Dennis. The patient has acute appendicitis accompanied by suspected 5 cm solid and phlegmon collection putting the tip of the appendix. No evidence of free air. The patient is seen by the surgeon. Today, went for surgery. The patient has ruptured appendicitis, appendiceal mass 2 x 3 cm. Laparoscopy converted to open appendectomy. Ed drain was used. Seen by the expander, Dr. Lam. Postoperatively, the patient is hemodynamically stable. We will repeat blood tests, out-of-bed. We will repeat labs. Discussion done with the patient, the patient's mother and daughter. Looking comfortable. Getting Dilaudid for pain. Getting Flagyl and ceftriaxone. Zofran for nauseousness. We will follow up. Katy Kim MD MTDD
[2017-03-14] MEDS: HYDROmorphone 0.5 mg/0.5 ml ISec IVP PRN ×5 (03:28→22:45)
[2017-03-14] MEDS: metroNIDAZOLE IV 500 mg/100 ml 500 MG/100 ML BAG IVPB STA (04:12)
[2017-03-14] MEDS: Morphine 2 mg/ml ISec IVP STA (04:18)
[2017-03-14] MEDS: cefTRIAXone 1 gm 1 GM/100 ML BAG IVPB STA (04:18)
[2017-03-14] MEDS: Sodium Chloride 0.9% 1,000 ML IV STA (04:18)
--- NOTE | 2017-03-14 04:38 | CON ---
REFERRING PHYSICIAN: Dr. Kim. REASON FOR CONSULT: May have sleep apnea syndrome, admitted with abdominal pain. HISTORY OF PRESENT ILLNESS: This is a 52-year-old female with past medical history significant for hysterectomy, came into ER with abdominal pain, flank pain, also with nausea. Denying any shortness of breath. No chill. No leg pain. No leg swelling. Found to have appendicitis, underwent appendectomy, presently has abdominal soreness. No nausea. No leg pain. No leg swelling. PAST MEDICAL HISTORY: No significant cardiopulmonary disease is reported. SOCIAL HISTORY: Denied any alcohol or smoking. FAMILY HISTORY: No significant cardiopulmonary disease is reported. REVIEW OF SYSTEMS: There is no noise noted, sleepy and tired. Admitted with nausea. Has some abdominal pain. No leg pain. No leg swelling. PHYSICAL EXAMINATION: VITAL SIGNS: Temperature is 98, heart rate 80, respiratory rate is 18, blood pressure 123/76 and pulse ox 95% on 3 L nasal cannula. HEENT: Moist mucous membranes. Crowded airway. Mallampati score is IV. NECK: Supple. No JVD. LUNGS: Fair airflow with rhonchi. HEART: S1 and S2. ABDOMEN: Surgical area looks okay. Mild tenderness. Drainage is intact. EXTREMITIES: There is no edema. NEUROLOGIC: Awake and alert. Follows simple commands. LABORATORY DATA: Showed hemoglobin 12.1, hematocrit 36.0, WBC 9.8, platelet is 270. INR 1.10. PTT is 30. Sodium 140, potassium 4.1, chloride 104, bicarbonate 25, BUN 12, creatinine 0.8, glucose 143, calcium 9.8, total bilirubin 1.0, AST 21, ALT 57, alkaline phosphatase is 108, albumin is 4.4. MEDICATIONS: She is on Dilaudid 1 mg q.4 hour p.r.n., Flagyl 500 mg q.8 hour, Lovenox 40 mg subcu daily, morphine 4 mg q.4 hour p.r.n., Reglan 10 mg was given, Rocephin 1 g daily and Zofran p.r.n. basis. IMPRESSION AND PLAN: Status post appendectomy, obesity, may have complaint of sleep apnea syndrome. Pulmonary point of view, doing okay. Keep head at 45 degree. Careful with sedation. Gastric prophylaxis. Deep venous thrombosis prophylaxis. As an outpatient, we recommended 10-day sleep study. Thank you and we will follow with you. Norah Gamble MD
[2017-03-14] MEDS: metroNIDAZOLE IV 500 mg/100 ml 500 MG/100 ML BAG IVPB SCH ×3 (05:31→21:52)
[2017-03-14] MEDS ORDERED: Sodium Chloride 0.9% 1,000 ML IV SCH (07:15)
[2017-03-14 07:24] LABS: HEMATOCRIT 32.3 % (36.0-48.0); MEAN CELL VOLUME 81.2 fl (80.0-105.0); MEAN CORPUSCULAR HEMOGLOBIN 26.4 pg (25.0-35.0); MEAN CORPUSCULAR HGB CONC 32.5 g/dl (31.0-37.0); MEAN PLATELET VOLUME 9.2 fl (7.0-11.0); RED CELL DISTRIBUTION WIDTH 13.3 % (11.5-14.5); WHITE BLOOD COUNT 8.3 10^3/ul (4.5-11.0)
[2017-03-14 08:10] LABS: ALB/GLOB RATIO 1.1 (1.1-1.8); ALKALINE PHOSPHATASE 78 U/L (38-126); ALT/SGPT 37 U/L (7-56); AST/SGOT 27 U/L (14-36); BILIRUBIN,TOTAL 0.6 mg/dL (0.2-1.3); BLOOD UREA NITROGEN 13 mg/dL (7-21); CALCIUM 8.9 mg/dL (8.4-10.5); CARBON DIOXIDE 28 mmol/L (21-33); CHLORIDE 105 mmol/L (95-110); CHOLESTEROL 137 mg/dL (130-200); GFR AFRICAN-AMERICAN > 60; GLUCOSE,RANDOM 120 mg/dL (70-110); PHOSPHOROUS 2.9 mg/dL (2.5-4.5); POTASSIUM 4.5 mmol/L (3.6-5.0); SODIUM 141 mmol/L (132-148); TOTAL PROTEIN 6.6 g/dL (5.8-8.3)
[2017-03-14] MEDS: Enoxaparin 40 mg Syringe SC SCH ×2 (08:46→09:23)
[2017-03-14] MEDS ORDERED: Oxycodone/Acetaminophen 5/325 mg Tab PO PRN (09:11)
--- NOTE | 2017-03-14 09:24 | CP.PCM.PN ---
Subjective - Date & Time of Evaluation Date of Evaluation: 03/14/17 Time of Evaluation: 09:20 - Subjective Subjective: Surgery Pt s&e. Underwent surgery yesterday and tolerated it well. Denies F/C/N/V/D/Cp/ SOB. Pain controlled. Tolerating diet. Objective - Vital Signs/Intake and Output Vital Signs (last 24 hours): Temp Pulse Resp BP Pulse Ox 98.8 F 79 20 103/65 98 03/14/17 08:56 03/14/17 08:56 03/14/17 08:56 03/14/17 08:56 03/14/17 08:56 Intake and Output: 03/14/17 03/14/17 06:59 18:59 Intake Total 2520 360 Output Total 470 150 Balance 2050 210 - Medications Medications: Current Medications Enoxaparin Sodium (Lovenox) 40 mg SC DAILY COUNTS INCLUDE 234 BEDS AT THE [facility] PRN Reason: Protocol Last Admin: 03/14/17 08:46 Dose: 40 mg Hydromorphone HCl (Dilaudid) 1 mg IVP Q4H PRN PRN Reason: Pain, moderate (4-7) Last Admin: 03/14/17 08:43 Dose: 1 mg Metronidazole (Flagyl) 500 mg in 100 mls @ 100 mls/hr IVPB Q8 COUNTS INCLUDE 234 BEDS AT THE [facility] PRN Reason: Protocol Last Admin: 03/14/17 05:31 Dose: 100 mls/hr Ceftriaxone Sodium (Rocephin 1 Gram Ivpb) 1 gm in 100 mls @ 100 mls/hr IVPB DAILY COUNTS INCLUDE 234 BEDS AT THE [facility] PRN Reason: Protocol Sodium Chloride (Sodium Chloride 0.9%) 1,000 mls @ 150 mls/hr IV .Q6H40M COUNTS INCLUDE 234 BEDS AT THE [facility] Last Admin: 03/14/17 08:19 Dose: Not Given Metoclopramide HCl (Reglan) 10 mg IV ONCE PRN PRN Reason: Nausea/Vomiting Morphine Sulfate (Morphine) 4 mg IVP Q4H PRN PRN Reason: Pain, moderate (4-7) Ondansetron HCl (Zofran Inj) 4 mg IVP Q4H PRN PRN Reason: Nausea/Vomiting Oxycodone/Acetaminophen (Percocet 5/325 Mg Tab) 2 tab PO Q4H PRN PRN Reason: Pain, moderate (4-7) Stop: 03/17/17 09:12 - Labs Labs: 03/14/17 07:00 03/14/17 07:00 PT 11.9 Seconds (9.9-11.8) H 03/13/17 04:58 INR 1.10 (0.93-1.08) H 03/13/17 04:58 APTT 29.6 Seconds (23.7-30.8) 03/13/17 04:58 - Constitutional Appears: No Acute Distress - Head Exam Head Exam: ATRAUMATIC, NORMAL INSPECTION, NORMOCEPHALIC - Eye Exam Eye Exam: EOMI, Normal appearance, PERRL Pupil Exam: NORMAL ACCOMODATION, PERRL - ENT Exam ENT Exam: Mucous Membranes Moist, Normal Exam - Neck Exam Neck Exam: Full ROM, Normal Inspection. absent: Lymphadenopathy - Respiratory Exam Respiratory Exam: Clear to Ausculation Bilateral, NORMAL BREATHING PATTERN - Cardiovascular Exam Cardiovascular Exam: REGULAR RHYTHM, +S1, +S2. absent: Murmur - GI/Abdominal Exam GI & Abdominal Exam: Soft, Tenderness, Normal Bowel Sounds. absent: Distended, Firm, Guarding, Rigid Additional comments: Dressing C/D/I. Drain in place. 70cc ss. - Extremities Exam Extremities Exam: Full ROM, Normal Capillary Refill, Normal Inspection. absent : Joint Swelling, Pedal Edema - Back Exam Back Exam: NORMAL INSPECTION - Neurological Exam Neurological Exam: Alert, Awake, CN II-XII Intact, Normal Gait, Oriented x3 - Psychiatric Exam Psychiatric exam: Normal Affect, Normal Mood - Skin Skin Exam: Dry, Intact, Normal Color, Warm Assessment and Plan - Assessment and Plan (Free Text) Assessment: POD 1 s/p open appendectomy -DC christiansen -Pain control -Monitor drain output -Regular diet -Medical managment ANITA Ely
[2017-03-14] MEDS: cefTRIAXone 1 gm 1 GM/100 ML BAG IVPB SCH (09:27)
[2017-03-14] MEDS: Sodium Chloride 0.9% 1,000 ML IV SCH ×2 (11:37→20:20)
--- NOTE | 2017-03-14 14:33 | PN ---
DATE: 03/14/2017 LOCATION: The patient is in room #370, bed #2. REASON FOR CONSULTATION: Status post appendectomy and cardiac evaluation. SUBJECTIVE: The patient is postop for appendectomy, lying flat in bed without chest pain, shortness of breath, or palpitation. PHYSICAL EXAMINATION: VITAL SIGNS: Blood pressure 103/65, respirations 20, pulse 79 and temperature 98.8. HEENT: Head is normocephalic. Eyes: Pupils are normal. Conjunctivae are slightly pale. NECK: JVP low. Carotids equal. THORAX: AP diameter normal. LUNGS: Clear. CARDIOVASCULAR: S1 and S2. ABDOMEN: Post surgery as mentioned before for appendectomy. EXTREMITIES: No clubbing, no cyanosis. LABORATORY DATA: WBC 8.3, hemoglobin 10.5, hematocrit 32.3, platelet 263. Sodium 141, potassium 4.5, BUN 13, creatinine 0.8, random glucose 120. Calcium 8.9, phosphorous 2.9, magnesium 2.0. AST and ALT normal. TSH 0.7. Cholesterol and triglyceride normal. IMPRESSION: Acute appendicitis status post appendectomy and postop anemia. PLAN: Clinically, cardiac status is stable. The patient is on Flagyl 500 mg IV q. 8 hours and Rocephin 1 g IV daily. The patient is on sodium chloride 0.9% 150 mL an hour, we will cut down to 110 mL an hour. We will repeat the lab in the morning and we will follow with you. Norah Rodriguez MD
--- NOTE | 2017-03-14 16:51 | PN ---
DATE: 03/14/2017 PULMONARY PROGRESS NOTE REFERRING PHYSICIAN: Dr. Kim. SUBJECTIVE: She is ambulating with the help of occupational therapy. No headache. No rhinitis. No bowel movement. Mild abdominal pain. No leg pain or leg swelling. OBJECTIVE: GENERAL: In no acute distress. VITAL SIGNS: Temperature is 98, heart rate is 79, respiratory rate is 18, blood pressure 103/65, and pulse ox 98% on nasal cannula. HEENT: Moist mucous membrane. Crowded airway. NECK: Supple. No JVD. LUNGS: Has a fair airflow with few rhonchi. HEART: S1 and S2. ABDOMEN: Positive bowel sounds, soft, mild tenderness. EXTREMITIES: There is no edema. NEUROLOGIC: Awake and alert. Follows simple commands. MEDICATIONS: She is on Colace 100 mg daily, Dilaudid 1 mg q. 4 hours p.r.n., Flagyl 500 mg IV q. 8 hours, Lovenox 40 mg daily, morphine 4 mg q. 4 hours p.r.n., Percocet 5/325 two tab q. 4 hours p.r.n., Reglan 10 mg 1 dose was given, Rocephin 1 g IV daily, IV fluids normal saline 110 mL per hour, Zofran p.r.n. basis. LABORATORY DATA: Reviewed and shows hemoglobin 10.5, hematocrit 32.3, WBC 8.3, platelet 263. INR 1.10. Sodium 141, potassium 4.5, chloride 105, bicarbonate 28, BUN 13, creatinine 0.8, glucose 120, calcium 8.9, magnesium 2.0, AST 27, ALT 37, albumin 3.4. Cholesterol is 137, TSH 0.7. Microbiology; blood culture and urine culture, there is no growth. IMPRESSION AND PLAN: Status post appendectomy, may have a sleep apnea syndrome, obesity. From Pulmonary point of view, doing okay, incentive spirometer. Gastric prophylaxis. Deep venous thrombosis prophylaxis. Continue therapy. Spoke to nursing staff to discontinue Spencer catheter. Thank you and we will follow with you. Norah Gamble MD
[2017-03-14] MEDS ORDERED: HYDROmorphone 1 mg/ml ISec IVP PRN (23:23)
--- NOTE | 2017-03-15 01:41 | PN ---
DATE: SUBJECTIVE: The patient is a 52-year-old female. The patient is seen and examined on the bedside, looking comfortable, and tolerated regular food. No nausea, vomiting, or diarrhea. No hematuria or hematochezia. No swelling of the legs. No chest pain or palpitations. Still having abdominal pain. PHYSICAL EXAMINATION: VITAL SIGNS: Temperature 98.8, pulse 79, respiratory rate 20, blood pressure 103/65, and pulse oximetry 98. HEENT: Head is normocephalic and atraumatic. Eyes; PERRLA. Extraocular muscles are intact. Conjunctivae clear. Nose is patent. Mucous membranes moist. NECK: Supple. No carotid bruits. No JVD or thyromegaly. CHEST: Bilaterally symmetrical. HEART: S1 and S2 positive. LUNGS: Clear to auscultation. ABDOMEN: Soft. Bowel sounds present. No organomegaly. EXTREMITIES: No edema. No cyanosis. NEUROLOGIC: The patient is awake and alert. Moving all 4 extremities. No focal deficits. MEDICATIONS: Brovana, Dilaudid, Flagyl, Rocephin, NS, Reglan, morphine, Zofran, and Percocet. LABORATORY DATA: White blood cell is 8.3, hemoglobin 10.5, hematocrit 32.3, and platelets 266. Sodium 141, potassium 4.5, BUN 13, creatinine 0.8, and glucose 120. ASSESSMENT AND PLAN: Ms. Cherelle Willis is a 52-year-old lady with anemia, hypoglycemia, came with abdominal pain, has surgery, postoperative day 1, and status post open appendectomy. The patient does have Spencer catheter, giving pain management, and monitoring drain output. Dr. Ely is the surgeon on the case. The patient was seen by Dr. Lam, police justice. The patient has postoperative anemia. Clinically, cardiac status is stable. The patient is getting Flagyl, Rocephin, and NS. Repeat labs. Seen by Dr. Gamble, jive developer also. Getting GI and DVT prophylaxis, obesity, and may be sleep apnea syndrome. Keep head elevated at 45 degrees. Careful with sedation. We will followup. Katy Kim MD [facility] # [id number] [place]
[2017-03-15] MEDS: Sodium Chloride 0.9% 1,000 ML IV SCH (06:22)
[2017-03-15] MEDS: metroNIDAZOLE IV 500 mg/100 ml 500 MG/100 ML BAG IVPB SCH (06:22)
[2017-03-15 07:20] LABS: BASO # 0.01 K/mm3 (0.0-2.0); BASO % 0.1 % (0.0-3.0); EOS % 0.1 % (1.5-5.0); GRAN # 6.25 (1.4-6.5); GRAN % 82.3 % (50.0-68.0); HEMATOCRIT 34.3 % (36.0-48.0); LYMPH # 0.8 (1.2-3.4); LYMPH % 10.4 % (22.0-35.0); MEAN CELL VOLUME 79.8 fl (80.0-105.0); MEAN CORPUSCULAR HEMOGLOBIN 26.5 pg (25.0-35.0); MEAN CORPUSCULAR HGB CONC 33.2 g/dl (31.0-37.0); MEAN PLATELET VOLUME 8.7 fl (7.0-11.0); MONO # 0.5 (0.1-0.6); MONO % 7.1 % (1.0-6.0); RED CELL DISTRIBUTION WIDTH 13.6 % (11.5-14.5); WHITE BLOOD COUNT 7.6 10^3/ul (4.5-11.0)
[2017-03-15 07:35] LABS: BLOOD UREA NITROGEN 15 mg/dL (7-21); CALCIUM 8.8 mg/dL (8.4-10.5); CARBON DIOXIDE 25 mmol/L (21-33); CHLORIDE 104 mmol/L (98-107); GFR AFRICAN-AMERICAN > 60; GLUCOSE,RANDOM 120 mg/dL (70-110); POTASSIUM 3.8 mmol/L (3.6-5.0); SODIUM 139 mmol/L (132-148)
[2017-03-15] MEDS: cefTRIAXone 1 gm 1 GM/100 ML BAG IVPB SCH (09:45)
[2017-03-15] MEDS: Enoxaparin 40 mg Syringe SC SCH (09:46)
[2017-03-15] MEDS ORDERED: HYDROmorphone 1 mg/ml ISec IVP PRN (10:38)
--- NOTE | 2017-03-15 10:43 | CP.PCM.PN ---
Subjective - Date & Time of Evaluation Date of Evaluation: 03/15/17 Time of Evaluation: 10:39 - Subjective Subjective: General Surgery - Dr. Ely Pt S&E. Overnight pt had several episodes of N/V after receiving percocet. Pain meds adjusted accordingly. Otherwise pt states her pain is well controlled and no complaints aside from the N/V. She denies any F/C, SOb/Cp. She has been OOB and voided on her own after christiansen removal yesterday. Objective - Vital Signs/Intake and Output Vital Signs (last 24 hours): Temp Pulse Resp BP Pulse Ox 99.1 F 89 20 118/68 96 03/14/17 16:00 03/14/17 16:00 03/14/17 16:00 03/14/17 16:00 03/14/17 16:00 Intake and Output: 03/15/17 03/15/17 06:59 18:59 Intake Total 1450 0 Output Total 230 900 Balance 1220 -900 - Medications Medications: Current Medications Docusate Sodium (Colace) 100 mg PO DAILY [facility] Last Admin: 03/15/17 09:44 Dose: Not Given Enoxaparin Sodium (Lovenox) 40 mg SC DAILY [facility] PRN Reason: Protocol Last Admin: 03/15/17 09:46 Dose: 40 mg Hydromorphone HCl (Dilaudid) 1 mg IVP Q4H PRN PRN Reason: Pain, severe (8-10) Metronidazole (Flagyl) 500 mg in 100 mls @ 100 mls/hr IVPB Q8 [place] PRN Reason: Protocol Last Admin: 03/15/17 06:22 Dose: 100 mls/hr Ceftriaxone Sodium (Rocephin 1 Gram Ivpb) 1 gm in 100 mls @ 100 mls/hr IVPB DAILY [facility] PRN Reason: Protocol Last Admin: 03/15/17 09:45 Dose: 100 mls/hr Sodium Chloride (Sodium Chloride 0.9%) 1,000 mls @ 110 mls/hr IV .Q9H6M [facility] Last Admin: 03/15/17 06:22 Dose: 110 mls/hr Ketorolac Tromethamine (Toradol) 30 mg IVP Q6H PRN PRN Reason: Pain, moderate (4-7) Metoclopramide HCl (Reglan) 10 mg IV ONCE PRN PRN Reason: Nausea/Vomiting Ondansetron HCl (Zofran Inj) 4 mg IVP Q4H PRN PRN Reason: Nausea/Vomiting Last Admin: 03/15/17 03:22 Dose: 4 mg - Labs Labs: 03/15/17 07:14 03/15/17 07:14 PT 11.9 Seconds (9.9-11.8) H 03/13/17 04:58 INR 1.10 (0.93-1.08) H 03/13/17 04:58 APTT 29.6 Seconds (23.7-30.8) 03/13/17 04:58 - Constitutional Appears: No Acute Distress - Head Exam Head Exam: ATRAUMATIC, NORMAL INSPECTION, NORMOCEPHALIC - Eye Exam Eye Exam: Normal appearance - Respiratory Exam Respiratory Exam: NORMAL BREATHING PATTERN. absent: Respiratory Distress - Cardiovascular Exam Cardiovascular Exam: REGULAR RHYTHM - GI/Abdominal Exam GI & Abdominal Exam: Soft. absent: Distended, Guarding, Tenderness, Rebound Additional comments: surgical dressing in place, C/D/I - Neurological Exam Neurological Exam: Alert, Oriented x3 - Psychiatric Exam Psychiatric exam: Normal Affect, Normal Mood - Skin Skin Exam: Dry, Intact Assessment and Plan - Assessment and Plan (Free Text) Assessment: 52F POD #2 s/p open appendectomy -Continue Regular diet, will transition to NPO if pt remains with N/V after pain medication adjustment -Toradol 30mg q6H PRN for moderate pain and Dilaudid for severe/breakthrough pain -Zofran PRN for nausea -OOB/Ambulation and Incentive spirometer DW Dr. Solis Schaeffer PGY3
--- NOTE | 2017-03-15 14:59 | PN ---
DATE: 03/15/2017 LOCATION: Patient in room 317, bed #2. REASON FOR CONSULTATION: Status post appendectomy, cardiac evaluation. SUBJECTIVE: Patient lying flat in bed without chest pain, shortness of breath, or palpitation. Patient complaining pain at the surgical site and also she said she has vomiting. PHYSICAL EXAMINATION VITAL SIGNS: Blood pressure 118/68, respirations 20, pulse 89, temperature 99.1. HEENT: Head is normocephalic. Eyes: Pupils are normal. Conjunctivae normal. NECK: JVP low. Carotids equal. THORAX: AP diameter normal. LUNGS: Clear. CARDIOVASCULAR: S1 and S2. ABDOMEN: Surgery as mentioned. EXTREMITIES: Periphery; no clubbing, no cyanosis. LABORATORY DATA: WBC 7.6, hemoglobin 11.4, hematocrit 34.3, platelet 300. Sodium 139, potassium 3.8, BUN 15, creatinine 0.8, sugar 120. Calcium, phosphorus, magnesium, normal. IMPRESSION: Acute appendicitis status post appendectomy, postoperative anemia. PLAN: Clinically, patient's cardiac status is stable and we will sign off and we will see on re-consult if needed. In the meantime, patient is getting metronidazole of 500 mg IV q. 8 hour, Lovenox 40 mg subcu daily, and patient getting IV fluid. We will continue present therapy. We will follow. Norah Rodriguez MD
[2017-03-15 16:19] VITALS: BP 108/75; PULSE 78; RESP 20; TEMP 98.4; O2SAT 96
--- NOTE | 2017-03-15 17:23 | OP ---
PREOPERATIVE DIAGNOSIS: Acute appendicitis. POSTOPERATIVE DIAGNOSIS: Acute appendicitis. OPERATION PERFORMED: Appendectomy. DESCRIPTION OF PROCEDURE: In the operating room, the patient was identified by name of the procedure, laterality and my surya. The patient had a CAT scan with a phlegmon on the CAT scan. Visi-Port and a suprapubic and a left lower quadrant catheter was inserted followed by dissection. There was a dense mass in the tip of the appendix that was completely unresectable laparoscopically. Consequently, a lower midline incision was made. It seemed to be a tumor. The base of the appendix was taken with a right angle followed by TA and removed retrograde entirely, and the abscess along the mesentery of the small bowel was taken nicely. 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 The area was irrigated and dried. A Ed was placed. The incision was closed with a running #1 PDS above and below and tied in the middle, and closed with subcuticular suture. The area was copiously irrigated after being cultured aerobically and anaerobically. The pathology of frozen said that this is nothing but a bad appendicitis in the tip, possibly perforated and certainly with an abscess. The patient was taken to the recovery room in good condition after the sponge and needle counts declared correct. Emre Ely MD
--- NOTE | 2017-03-16 22:55 | DS ---
CHIEF COMPLAINT: Flank pain. HISTORY OF PRESENT ILLNESS: Ms. Cherelle Willis is a 52-year-old female with past medical history of hysterectomy, came to the emergency room with flank pain. The patient reported that she has been experiencing intermittent right flank pain radiating onto her right abdomen for 1 week. The patient noticed associated nausea and dark urine. The patient denies fever, chills or shortness of breath. We admitted the patient, did CAT scan of abdomen and pelvis, came to know the patient had appendicitis. Surgical consult called with Dr. Emre Ely, he did the surgery, started laparoscopic, performed, the patient's appendix was ruptured, so it had to be changed into open laparotomy, surgery was done, the patient improved, discharged home on with p.o. antibiotics after clearing by surgeon. The patient tolerated surgery well, did bowel movement, passed gas. Will follow up with the surgeon and primary care physician. PAST MEDICAL HISTORY: Hysterectomy and tubal ligation. HABITS: Never smoked. No drug or ethanol. ALLERGIES: THE PATIENT IS NOT ALLERGIC TO ANY MEDICATION. HOME MEDICATION: Denied. REVIEW OF SYSTEMS: The patient was seen and examined on the bedside, looking comfortable. No nausea, vomiting or diarrhea. No hematuria or hematochezia. No swelling of the legs. No chest pain. No palpitation. Abdominal pain is getting better. PHYSICAL EXAMINATION: VITAL SIGNS: Temperature 98.4, pulse 78, blood pressure 108/75 and respiratory rate 20. HEENT: Head is normocephalic and atraumatic. Eyes: PERRLA. Extraocular muscles intact. Conjunctivae clear. Nose patent. Mucous membranes moist. NECK: Supple. No carotid bruits, JVD or thyromegaly. CHEST: Bilaterally symmetrical. HEART: S1 and S2 positive. LUNGS: Clear to auscultation. ABDOMEN: Soft. Bowel sounds positive. No organomegaly. EXTREMITIES: No edema. No cyanosis. NEUROLOGICALLY: The patient is awake and alert. Moving all 4 extremities. No focal deficit. LABORATORY DATA: White blood cells 7.6, hemoglobin 11.4, hematocrit 34.3 and platelets 300. Sodium 139, potassium 3.8, BUN 15, creatinine 0.8 and glucose 120. ASSESSMENT AND PLAN: Ms. Cherelle Willis is a 52-year-old lady who came with flank pain, found to have acute appendicitis, status post appendectomy, postoperative anemia. 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 Did better, ate food, tolerated very well, did bowel movement. Spencer catheter was removed. Dr. Ely cleared the patient. Discharged home with Flagyl and Levaquin. We will follow up. Katy Kim MD MTDD
== END 2017-03-15 17:03 | disposition home or self-care (01) | DRG 340 ==
LOC: ED 01:59 → ERH 05:14 → 3RSO 06:10
PROVIDERS: ADMIT Internal Medicine; ATTEND Internal Medicine
PROC: 0DJD4ZZ Inspection of Lower Intestinal Tract, Percutaneous Endoscopic Approach (ICD-10-PCS; 2017-03-13)
PROC: 0DTJ0ZZ Resection of Appendix, Open Approach (ICD-10-PCS; principal; 2017-03-13 07:30)
DX: K35.3 Acute appendicitis with localized peritonitis (principal); E66.9 Obesity, unspecified; R31.9 Hematuria, unspecified; R80.9 Proteinuria, unspecified; D64.9 Anemia, unspecified; R73.9 Hyperglycemia, unspecified; Z53.31 Laparoscopic surgical procedure converted to open procedure; Z68.37 Body mass index [BMI] 37.0-37.9, adult; Z90.710 Acquired absence of both cervix and uterus; Z98.51 Tubal ligation status